=== PATIENT | male | born 1970 | race Caucasian/White ===

== ENCOUNTER 2017-02-23 06:38 | Inpatient (IN) ==
[2017-02-23] MEDS ORDERED: Acetaminophen IV 1,000 MG/100 ML INFUS..BTL IVPB ONE (07:12)
[2017-02-23] MEDS ORDERED: Scopolamine Patch 1.5 MG PATCH.TD72 TD ONE (07:12)
--- NOTE | 2017-02-23 07:15 | Anesthesia Evaluation PreOp ---
Date of Encounter: 02/23/17 Time of Encounter: 07:10 - Past History Planned Operation: robotic colon resection Cardiac History: Denies any Significant Hx, HTN (Possible untreated diastolic hypertension) Pulmonary History: Former smoker [employer] History: Denies Any Significant HX Other Medical History: Denies Any Significant HX Anesthesia History: No Prior Anesthetic Complications, Past Anesthesia Alcohol Use: occasionally Drug use: none Medications and Allergies Multivitamin [Multi-Day Vitamins] 1 each PO DAILY 09/10/15 [History] Testosterone [Axiron] 30 mg TD DAILY 09/10/15 [History] cephALEXin [Keflex] 1 cap PO QID #40 capsule 09/10/15 [Rx] traMADol [Ultram] 1 tab PO TID #20 tablet 09/10/15 [Rx] Allergies acetaminophen [From Vicodin] Adverse Reaction (Unverified 02/23/17 07:15) Nausea Not allergic to acetaminophen, allergic to hydrocodone component of vicodin hydrocodone [From Vicodin] Adverse Reaction (Verified 02/11/17 16:02) Nausea morphine Adverse Reaction (Verified 02/11/17 16:02) n&v - Meds/Allergy Pre-op Review Medications Reviewed: Yes Allergies Reviewed: Yes Beta Blockers on Current Med List: No Anesthesia Results - Labs Laboratory Tests 02/11/17 15:58 Hgb 15.5 Plt Count 223 Anesthesia Exam Selected Entries 02/23/17 06:53 Temperature 98.0 F Pulse Rate 75 Respiratory Rate 18 Blood Pressure 119/90 O2 Sat by Pulse Oximetry 98 Weight: 122kg NPO (# of Hours): over 8 hours - HEENT Pupil (Motor): Pupils equal Mallampati: II Teeth: Normal Oral Opening: Greater than 3 (Had surgery in August, easy airway, easy intubation) - Cardiac Rhythm: Regular Murmur: None - Pulmonary Breath Sounds: bilateral Clear Respiratory Effort: Symmetrical Anesthesia Assess/Plan ASA Score: 2 Modified [place] Scale for Level of Consciousness: Cooperative, oriented, and tranquil Anesthetic Plan: General Monitoring Plan: Standard Monitors Recovery Plan: PACU
[2017-02-23] MEDS ORDERED: *HR* Midazolam HCl 2 MG/2 ML VIAL ONE (07:18)
[2017-02-23] MEDS ORDERED: *HR* Rocuronium Bromide 50 MG/5 ML VIAL ONE (07:18)
[2017-02-23] MEDS ORDERED: *HR* Propofol 200 MG/20 ML VIAL IVP ONE (07:18)
[2017-02-23] MEDS ORDERED: Ketorolac 30 MG/ML VIAL ONE (07:18)
[2017-02-23] MEDS ORDERED: *HR* FentaNYL (PF) 100 MCG/2 ML VIAL ONE ×2 (07:18→09:24)
[2017-02-23] MEDS ORDERED: Ondansetron 4 MG/2 ML VIAL ONE (07:18)
[2017-02-23] MEDS ORDERED: Lidocaine -MPF 2% 2 ML VIAL ONE (07:18)
[2017-02-23] MEDS ORDERED: cefOXitin 2,000 MG in D5% in Water (Mini-Bag+) 100 ML IVPB ONE (07:26)
[2017-02-23] MEDS ORDERED: Lidocaine -MPF 1% 2 ML VIAL ID ONE ×2 (07:26→12:37)
[2017-02-23] MEDS ORDERED: Ringers Solution, Lactated 1,000 ML IVC SCH ×2 (07:30→12:37)
--- NOTE | 2017-02-23 07:46 | History & Physical Report ---
Date of Encounter: 02/23/17 Time of Encounter: 07:44 24 Hour HP Update - Instructions Instructions: If the History and Physical is less than 30 days old and was completed prior to A.M. admission and or procedure and has NOT been updated on calendar day of procedure please complete this update prior to performing procedure. - Update Patient reports changes in Medical Condition: No Changes in examination, assessment, or condition: No Changes in Medication: No Preop tests/diagnostics Reviewed: Yes Surgery Remains Indicated: Yes Consent for Planned Operative Procedure(s) Verified: Yes - Pre-Operative Checklist Preoperative Checklist Indicated: Yes Prophylactic Antibiotic Ordered: Yes Home Medications Include Beta Damaris: No
[2017-02-23] MEDS ORDERED: Dexamethasone 4 MG/ML VIAL ONE (09:30)
[2017-02-23] MEDS ORDERED: *HR* HYDROmorphone (PF) 1 MG/ML SYRINGE IVP PRN ×2 (10:45→11:44)
[2017-02-23] MEDS ORDERED: *HR* Labetalol 20 MG/4 ML SYRINGE IVP PRN (10:45)
[2017-02-23] MEDS ORDERED: *HR* Promethazine 25 MG/ML VIAL IVP PRN (10:45)
[2017-02-23] MEDS ORDERED: Albuterol 2.5 MG/3 ML NEBULIZER IH PRN (10:45)
[2017-02-23] MEDS ORDERED: *HR* HYDROmorphone 2 MG/ML SYRINGE ONE (10:49)
[2017-02-23] MEDS ORDERED: Neostigmine Methylsulfate 3 MG/3 ML SYRINGE ONE (10:49)
--- NOTE | 2017-02-23 11:21 | Operative Note ---
Date of procedure: 02/23/17 Pre-op diagnosis: Sigmoid Diverticulitis Procedure: Robotic Sigmoid resection with 29 mm stapler Anesthesia: MELISSA Surgeon: Nikhil Almazan Estimated blood loss (cc): 15 Condition: stable Disposition: floor Procedure in Detail: After informed consent, patient taken operating room placed supine position. After adequate sedation anesthesia patient was placed in a lithotomy position. After proper timeout a 12 mm cannula site was placed right superior to the umbilicus. Pneumoperitoneum was greater. A 13 mm cannula was placed in right lower quadrant. 5 mm camera was placed in the right upper quadrant. An 8 mm cannula was placed in subxiphoid region followed by another 8 mm in the left lower quadrant. Patient was placed in a headdown position. The robot was docked over the patient's left hip. Small bowel swept out of the pelvis. Rectosigmoid colon was then grasped and retracted cephalad. The peritoneum was then scored level of the sacral promontory. The left ureter was identified and kept on harm's way. The inferior mesenteric artery was then taken with a vessel sealer. The lateral rectosigmoid stalks were taken down the vessel sealer. The dissection was carried out down to approximate 4 cm above the pelvic floor. Rectosigmoid colon was dissected free from the retro-pubic tubercle region. Once it was freed a 45 mm robotic Endo staplers fired across the rectum. Once it was retracted and area was demarcated on the sigmoid colon for transection. Indocyanine green was infused and we had excellent perfusion. A counterincision was made in the suprapubic region. Dissection carried down the anterior rectus sheath. The rectus muscles were then divided in the midline with Cristy clamp. Once they were split the rectosigmoid colon was delivered. Lilian bowel clamps are used to place across the colon proximal and distal and transected. Allis clamps are placed on the bowel and then a pursestring suture device placed on the colon. 3-0 Prolene suture was passed. A pursestring sutures and created and a 29 mm EEA anvil was placed. Suture was tied and secured. Colon was then placed back in the pelvis. The stapler was passed through the anal canal and to the rectal stump and then the spear was placed through the staple line. The anvil was then connected secured and fired. There were 2 excellent donuts. A leak test revealed no leak. At that point the procedure was terminated. All incisions are closed with 0 Vicryl suture and 4-0 Vicryl suture. Marcaine was inserted in the Pfannenstiel incision. She tolerated the procedure well.
[2017-02-23] MEDS ORDERED: Naloxone 0.4 MG/ML INJ IVP PRN ×2 (11:40→12:37)
[2017-02-23] MEDS ORDERED: *HR* Morphine 2 MG/ML SYRINGE IVP PRN (11:40)
[2017-02-23] MEDS ORDERED: Ondansetron 4 MG/2 ML VIAL IVP PRN ×3 (11:40→13:07)
[2017-02-23] MEDS ORDERED: D5% in 0.45% NACL 1,000 ML IVC SCH (11:45)
--- NOTE | 2017-02-23 12:06 | Anesthesia Evaluation Post Op ---
Date of Encounter: 02/23/17 Time of Encounter: 12:00 - Vital Signs Vital Signs: Vital Signs/O2 Sat/Glucose, Most Current Temp Pulse Resp BP Pulse Ox 02/23/17 11:55 65 16 120/92 100 02/23/17 11:45 59 16 122/90 89 02/23/17 11:35 97.1 F L 60 14 128/88 93 02/23/17 11:25 61 16 120/98 95 02/23/17 11:15 65 14 138/107 98 02/23/17 11:05 98.3 F 79 14 141/104 96 - Lungs Lungs: Clear Ascult./Percussion - Airway Airway: Non-obstructed - Cardiovascular Regular Rate - Mental Status Mental Status: Alert & Oriented, Answers Appropriately - Pain Pain Scale: 0 - Nausea Vomiting Nausea Vomiting: Not Present - Hydration Hydration: Ice chips - Discharge PostOp Status: Transfer Patient to floor
[2017-02-23] MEDS ORDERED: Acetaminophen 325 MG TABLET PO PRN (13:06)
[2017-02-23] MEDS: *HR* HYDROmorphone (PF) 1 MG/ML SYRINGE IVP PRN ×3 (13:28→18:50)
[2017-02-23] MEDS: D5% in 0.45% NACL 1,000 ML IVC SCH (13:31)
[2017-02-23] MEDS: *HR* Heparin 5,000 UNIT/ML VIAL SQ SCH (17:38)
[2017-02-23] MEDS ORDERED: *HR* Heparin 5,000 UNIT/ML VIAL SQ SCH (18:00)
[2017-02-23] MEDS: *HR* OxyCODONE/APAP 5/325 TABLET PO PRN (21:33)
[2017-02-24] MEDS: *HR* HYDROmorphone (PF) 1 MG/ML SYRINGE IVP PRN (00:44)
[2017-02-24] MEDS: *HR* Heparin 5,000 UNIT/ML VIAL SQ SCH (05:46)
[2017-02-24] MEDS: D5% in 0.45% NACL 1,000 ML IVC SCH (05:47)
[2017-02-24 07:01] LABS: Basophils % 0.1 %; Eosinophils % 0.1 %; Hematocrit 42.8 % (37.5-50.1); Hemoglobin 14.5 g/dL (12.9-16.9); Immature Granulocytes % 0.7 % (0-4); Lymphocytes # 1.2 K/mcL (0.6-4.6); Lymphocytes % 7.4 %; Mean Corpuscular HGB Conc 33.9 g/dL (31.6-35.5); Mean Corpuscular Volume 88.4 fL (83.0-100.0); Mean Platelet Volume 11.3 fL (9.4-12.4); Monocytes # 1.5 K/mcL (0.0-1.3); Monocytes % 8.8 %; Neutrophils # 13.8 K/mcL (1.6-8.9); Platelet Count 202 K/mcL (140-400); Red Blood Count 4.84 M/mcL (4.19-5.50); Red Cell Distribution Width 14.1 % (11.5-14.5); Segmented Neutrophils % 82.9 %
[2017-02-24] MEDS: *HR* OxyCODONE/APAP 5/325 TABLET PO PRN ×3 (07:56→16:34)
--- NOTE | 2017-02-24 09:08 | General Surgery Progress Note ---
Date of Encounter: 02/24/17 Time of Encounter: 09:05 - Assessment and Plan (1) Status post laparoscopic-assisted sigmoidectomy Current Visit: Yes Status: Acute POD # 1 s/p Laproscopic Sigmoid resection Afebrile Clear liquid diet Pain control - Tylenol - mild - Percocet - Moderate - Dilaudid - Severe H&H stable IVF BS present on exam today. No Flatus or BM. Will monitor for bowel function. Encouraged ICS Ambulate with assistance as tolerated Continue supportive care and management Patient understands and agrees to plan (2) Leukocytosis Current Visit: Yes Status: Acute WBC today 16.7. No recent CBC. Likely d/t reaction from surgery and receiving a dose of Decadron yesterday. Repeat labs in morning. Qualifiers: Qualified Code(s): D72.829 - Elevated white blood cell count, unspecified Subjective Patient reports: feels better, still having pain (incisional), tolerating liquids well, no flatus (feels bowels moving), no bowel movement, afebrile Objective Vital Signs - Last 8 Hours Temp Pulse Resp BP Pulse Ox 02/24/17 06:59 97.9 F 61 16 117/73 99 Intake and Output 02/23/17 02/24/17 02/24/17 23:59 07:59 15:59 Intake Total 1116 / 1116 240 / 240 Output Total 2275 / 2275 1625 / 1625 675 / 675 Balance -2275 / -2275 -509 / -509 -435 / -435 Intake: IV Fluids 1116 / 1116 D5% And 0.45% Nacl 1000 1116 / 1116 Ml Bag 1,000 ML @ 75 mls/ hr IVC .[id number] [facility] Rx#: [id number] Oral 240 / 240 Output: Urine 2275 / 2275 1625 / 1625 675 / 675 - General physical appearance no distress, obese - Eyes normal ocular movement - ENT normal mucosa - Neck Neck exam: trachea midline - Respiratory normal expansion, normal respiratory effort, clear to auscultation - Cardiovascular Cardiovascular exam: Present: RRR, no murmurs/rubs/gallops - Abdomen Abdomen: Present: bowel sounds present, soft, tender (incisional) - Incision Incision: Present: clean and dry (No evidence of erythema, drainage or shadowing ), intact - Neurologic CN 2-12 grossly intact - Psychiatric oriented to time, oriented to person, oriented to place, speech is normal, memory intact - Labs 02/24/17 06:00 Short CBC 02/24/17 Range/Units 06:00 WBC 16.7 H (4.3-11.1) K/mcL Hgb 14.5 (12.9-16.9) g/dL Hct 42.8 (37.5-50.1) % Plt Count 202 (140-400) K/mcL Neutrophils # 13.8 H (1.6-8.9) K/mcL Vital Signs Temp Pulse Resp BP Pulse Ox 02/24/17 06:59 97.9 F 61 16 117/73 99 02/23/17 23:30 98.1 F 73 16 104/61 96 02/23/17 20:55 98.1 F 79 17 113/69 97 02/23/17 17:35 97.8 F 91 18 112/70 95 02/23/17 15:25 97.1 F L 86 18 102/65 95 02/23/17 14:25 97.9 F 88 16 93/62 94 02/23/17 13:25 97.4 F L 94 16 99/64 94 02/23/17 12:55 97.8 F 67 16 106/72 97 02/23/17 12:25 97.7 F 75 16 112/76 97 02/23/17 12:05 97.2 F L 68 16 120/88 99 02/23/17 11:55 65 16 120/92 100 02/23/17 11:45 59 16 122/90 89 02/23/17 11:35 97.1 F L 60 14 128/88 93 02/23/17 11:25 61 16 120/98 95 02/23/17 11:15 65 14 138/107 98 02/23/17 11:05 98.3 F 79 14 141/104 96 Intake and Output 02/23/17 02/24/17 02/24/17 23:59 07:59 15:59 Intake Total 1116 / 1116 240 / 240 Output Total 2274 / 2274 1625 / 1625 675 / 675 Balance -2275 / -2275 -509 / -509 -435 / -435 Intake: IV Fluids 1116 / 1116 D5% And 0.45% Nacl 1000 1116 / 1116 Ml Bag 1,000 ML @ 75 mls/ hr IVC .[id number] [facility] Rx#: [id number] Oral 240 / 240 Output: Urine 2275 / 2275 1625 / 1625 675 / 675 - VTE Documentation of Mechanical Device: Intermittent pneumatic compression device Consult Discharge Plan - Plan Referrals: Candi Mireles CNP [Primary Care Provider] - Kaelyn Ferrara CNP [Advanced Practice Nurse] - 03/07/17 9:00 am
[2017-02-24 09:19] LABS: BUN/Creatinine Ratio 9 (6-26); Blood Urea Nitrogen 8 mg/dL (8-26); Calcium 9.2 mg/dL (8.6-10.8); Carbon Dioxide 25 mEq/L (19-29); Chloride 102 mEq/L (98-109); Glucose 122 mg/dL (70-99); Osmolality,Calculated 280 (280-300); Potassium 4.1 mEq/L (3.5-4.5); Sodium 135 mEq/L (136-145); eGFR For African Americans > 60 (> 60); eGFR For Non-African Americans > 60 (> 60)
--- NOTE | 2017-02-24 15:21 | Discharge Summary ---
Date of Encounter: 02/24/17 Time of Encounter: 15:00 - Discharge Diagnosis (1) Status post laparoscopic-assisted sigmoidectomy Priority: Primary Status: Acute - Discharge Medications Prescriptions: OxyCODONE/APAP 5/325 [Percocet 5/325 MG] 1 each PO Q4HR PRN #30 tab PRN Reason: Moderate Pain Docusate Sodium [Colace] 100 mg PO BID PRN #30 capsule PRN Reason: Constipation Ibuprofen 800 mg PO Q8H PRN #50 tablet PRN Reason: Mild Pain Home Medications: Fluticasone Propionate Nasal [Flonase] 1 spr NS BID 02/23/17 [History] Multivit-Minerals/FA/Lycopene [Eq One Daily Men's Tablet] 1 tab PO DAILY [History] Docusate Sodium [Colace] 100 mg PO BID PRN #30 capsule 02/24/17 [Rx] Ibuprofen 800 mg PO Q8H PRN #50 tablet 02/24/17 [Rx] OxyCODONE/APAP 5/325 [Percocet 5/325 MG] 1 each PO Q4HR PRN #30 tab 02/24/17 [Rx ] Allergies/Adverse Reactions: Allergies hydrocodone [From Vicodin] Adverse Reaction (Verified 02/11/17 16:02) Nausea morphine Adverse Reaction (Verified 02/11/17 16:02) n&v General Surgery Exam Initial Vital Signs Temp Pulse Resp BP Pulse Ox 98.0 F 75 18 119/90 98 02/23/17 06:53 02/23/17 06:53 02/23/17 06:53 02/23/17 06:53 02/23/17 06:53 - General physical appearance well developed, well nourished, no distress - Eyes normal ocular movement - ENT normal mucosa, atraumatic, normocephalic - Neck trachea midline - Respiratory normal respiratory effort, clear to auscultation - Cardiovascular Cardiovascular exam: Present: RRR - Abdomen Abdomen general surgery: Present: bowel sounds present, soft, tender (Expected postoperative tenderness) - Incision Incision: Present: clean and dry, intact - Integumentary Integumentary general surgery: Present: warm and dry - Neurologic Present: CN 2-12 grossly intact - Psychiatric Psychiatric general surgery: Present: appropriate, oriented to person, oriented to place, oriented to time, speech is normal, memory intact Date of admission: 02/23/17 12:31 Primary care physician: Candi Mireles, Discharging clinician: Nikhil Almazan (Lyndsey Ferrara) Anticipated date of discharge: 02/24/17 - Patient Status Disposition: Home, Self-Care Condition: Good Functional capacity at discharge: independent ambulation Overall status at discharge: patient is progressing back to baseline - Discharge Instructions Follow Up With: Candi Mireles CNP [Primary Care Provider] - Kaelyn Ferrara CNP [Advanced Practice Nurse] - 03/07/17 9:00 am Additional Instructions: #1 may shower, no tub bath for 2 weeks #2 wash incisions with soap and water and pat dry daily #3 no lifting, pushing, pulling more than 15 pounds for the next 4 weeks #4 no driving until off narcotics for 24 hours and able to safely react in the car #5 may climb stairs - Diet and Activity Activity: other (See additional instructions above) Diet: other (Advance to soft diet as tolerated; Avoid steak, chicken, pork and roughage for 2 weeks) - Hospital Course Hospital course: Mr. Gates is a 46 year old male who is status post robotic-assisted sigmoid colon resection due to diverticular disease. On postoperative day #1, she is tolerating liquid diet without nausea or vomiting. His pain is well- controlled. His vital signs are stable and he is afebrile. He is voiding and ambulating without difficulty. We will begin discharge planning to home and plan for outpatient follow-up in the next 10-14 days. - Time Spent with Patient Total time spent providing and/or coordinating discharge services: Less than 30 minutes Labs on day of discharge: Labs from last 24 hours 02/24/17 02/24/17 02/24/17 07:56 07:30 06:00 WBC 16.7 H RBC 4.84 Hgb 14.5 Hct 42.8 MCV 88.4 MCH 30.0 MCHC 33.9 RDW 14.1 Plt Count 202 MPV 11.3 Immature Gran % 0.7 Seg Neutrophils % 82.9 Lymphocytes % 7.4 Monocytes % 8.8 Eosinophils % 0.1 Basophils % 0.1 Neutrophils # 13.8 H Lymphocytes # 1.2 Monocytes # 1.5 H Eosinophils # 0.0 Basophils # 0.0 Sodium 135 L Potassium 4.1 Chloride 102 Carbon Dioxide 25 BUN 8 Creatinine 0.89 Est GFR ( Amer) > 60 Est GFR (Non-Af Amer) > 60 BUN/Creatinine Ratio 9 Glucose 122 H Calculated Osmolality 280 Calcium 9.2 Specimen Rejected Hemolyzed - Attending Attestation I examined this patient and my medical decision-making was reviewed with the ANIME ARTIST/PA/Advanced Practice Nurse/Resident Physician. I agree with the documented findings, disposition and treatment plan as described except to the extent set forth below.
[2017-02-24 15:29] VITALS: BP 117/76
== END 2017-02-24 17:50 | disposition home or self-care (01) | DRG 331 ==
LOC: SAMDAY 06:38 → 3ANU 12:31
PROVIDERS: ADMIT Surgery; ATTEND Surgery

== ENCOUNTER 2019-02-08 09:29 | Observation (INO) ==
--- NOTE | 2019-02-08 09:33 | Emergency Department Note ---
Disposition Clinical Impression: Unstable angina Hypertension Qualifiers: Hypertension type: unspecified Qualified Code(s): I10 - Essential (primary) hypertension Chest pain Qualifiers: Chest pain type: unspecified Qualified Code(s): R07.9 - Chest pain, unspecified Disposition: Admitted As Inpatient Condition: Good Referrals: NONE,PCP [Primary Care Provider] - Time of Disposition: 13:48 General Adult HPI - General Stated complaint: Chest Pain Time Seen by Provider: 02/08/19 09:31 Nursing Notes Reviewed: Yes Vital Signs Reviewed: Yes - History of Present Illness HPI Narrative: 48-year-old male presents emergency department with concern for chest pain. Patient states that he has been having sharp pain over the last 4 days that come and go. He said it happened very frequently. Reports no nausea or vomiting with them, but does have some diaphoresis. Person is also some tingling in the back arm that radiates from the chest pain. Patient states that today he was carrying garbage and reported a presyncopal episode where everything felt like it went dark. Patient states that he did not pass out lose consciousness. No history of coronary artery disease, father had cardiac bypass surgery, h ypertension hyperlipidemia, nonsmoker, nondiabetic. Patient also reporting some abdominal pain as well as back pain different times. Not currently having it right now. History of sigmoidectomy. - Related Data Home Medications Medication Instructions Recorded Confirmed No Known Home Drugs 02/08/19 02/08/19 Allergies Allergy/AdvReac Type Severity Reaction Status Date / Time hydrocodone [From Vicodin] AdvReac Nausea Verified 02/11/17 16:02 morphine AdvReac n&v Verified 02/11/17 16:02 All systems ED: reviewed and negative except as stated. Review of Systems: As Per HPI Constitutional: Denies: fever Cardiovascular: Reports: chest pain Respiratory: Denies: dyspnea Gastrointestinal: Reports: abdominal pain. Denies: nausea, vomiting, diarrhea, constipation, hematochezia Genitourinary: Denies: dysuria Musculoskeletal: Reports: back pain Past Medical History - Past Medical History Attestation: Yes The following information was validated with the patient. Medical history: Reports: hyperlipidemia, hypertension Surgical history: Reports: colectomy, orthopedic, other, other Psychiatric history: Reports: no psych history - Social History Smoking Status: Never smoker Smokeless Tobacco Status: No Alcohol use: Reports: none Drug use: Reports: none Physical Exam - General Limitations: no limitations General appearance: alert, in no apparent distress - Head Head exam: normocephalic - Eye Eye exam: Present: EOMI - ENT ENT exam: mucous membranes moist - Neck Neck exam: Present: trachea midline - Chest Chest inspection: Present: symmetric chest wall rise - Respiratory Respiratory exam: Present: normal lung sounds bilaterally. Absent: respiratory distress, accessory muscle use - Cardiovascular Cardiovascular exam: Present: regular rate, normal rhythm, normal heart sounds - Abdominal Exam Abdominal exam: Present: soft, Non-Tender. Absent: distention, guarding, rebound, rigidity - Extremities Exam Extremities exam: Present: normal capillary refill. Absent: calf tenderness - Neurological Exam Neurological exam: Present: alert, oriented X3 - Psychiatric Psychiatric exam: Present: normal affect, normal mood - Skin Skin exam: Present: warm, dry, intact, normal color. Absent: rash Course Vital Signs Temperature 98.3 F 02/08/19 09:35 Pulse Rate 87 02/08/19 09:35 Respiratory Rate 18 02/08/19 09:35 Blood Pressure 172/122 02/08/19 09:35 O2 Sat by Pulse Oximetry 99 02/08/19 09:35 Temperature 98.3 F 02/08/19 09:35 Pulse Rate 72 02/08/19 13:23 Respiratory Rate 18 02/08/19 13:23 Blood Pressure 129/90 02/08/19 13:23 O2 Sat by Pulse Oximetry 96 02/08/19 13:23 Oxygen Delivery Oxygen Delivery Room Air Medical Decision Making - [facility] Narrative Medical decision making narrative: 48-year-old male presents emergency Department with concern for frequent episodes of chest pain over the last 4 days. EKG does not reveal any ischemic changes. Troponin negative. Performed a CTA and dissection study and but that did not reveal any evidence of any acute abnormality. Patient given aspirin. His chest pressure responded to nitroglycerin. Heart score 4. Concern about unstable angina as patient has had frequent episodes over the last few days. Patient admitted to Dr. Jenkins. Chest X-Ray 02/08/19 09:32 IMPRESSION: No acute process. D/ / Saranya Carter MD / Saranya Carter MD Interpreting Provider: Saranya Carter MD Dissection 02/08/19 09:42 IMPRESSION: 1. No evidence of thoracic aortic dissection, aneurysm, or intramural hematoma. The examination is not adequate to assess for thromboembolic disease due to suboptimal opacification of the pulmonary artery. There are questionable hypodensities in the segmental branches of the right lower lobe which may be due to mixing artifact; however, if clinical concern persists for pulmonary emboli, consider dedicated PE study, assuming normal renal function. 2. Coronary artery disease. 3. Sigmoid diverticulosis. No evidence of diverticulitis. D/ / 02/08/2019 11:25:55 Neville Em MD / [facility] Interpreting Provider: Neville Em MD Chest CTA 02/08/19 11:26 IMPRESSION: No evidence of pulmonary embolism or acute pulmonary abnormality. D/ / 02/08/2019 12:10:05 Yvonne Mccormack MD / [facility] Interpreting Provider: Yvonne Mccormack MD - Lab Data Result diagrams: 02/08/19 09:46 02/08/19 09:46 Lab Results 02/08/19 02/08/19 Range/Units 09:46 09:46 WBC 7.2 (4.3-11.1) K/mcL RBC 6.10 H (4.19-5.50) M/mcL Hgb 17.8 H (12.9-16.9) g/dL Hct 53.4 H (37.5-50.1) % MCV 87.5 (83.0-100.0) fL MCH 29.2 (28.0-33.3) pg MCHC 33.3 (31.6-35.5) g/dL RDW 14.4 (11.5-14.5) % Plt Count 217 (140-400) K/mcL MPV 10.6 (9.4-12.4) fL Immature Gran % 0.6 (0-4) % Seg Neutrophils % 65.7 % Lymphocytes % 22.1 % Monocytes % 8.4 % Eosinophils % 2.5 % Basophils % 0.7 % Neutrophils # 4.7 (1.6-8.9) K/mcL Lymphocytes # 1.6 (0.6-4.6) K/mcL Monocytes # 0.6 (0.0-1.3) K/mcL Eosinophils # 0.2 (0.0-0.6) K/mcL Basophils # 0.1 (0.0-0.2) K/mcL Sodium 137 (136-145) mEq/L Potassium 4.6 (3.5-5.1) mEq/L Chloride 102 (98-107) mEq/L Carbon Dioxide 28 (23-29) mEq/L BUN 15 (6-20) mg/dL Creatinine 1.09 (0.70-1.30) mg/dL Est GFR ( Amer) > 60 (> 60) Est GFR (Non-Af Amer) > 60 (> 60) BUN/Creatinine Ratio 14 (6-26) Glucose 113 H (70-105) mg/dL Calculated Osmolality 286 (280-300) Calcium 9.5 (8.6-10.3) mg/dL Troponin I < 0.03 (< 0.04) ng/mL - Radiology Data Radiology results reviewed: Yes I reviewed the patient's radiology results. - EKG Data EKG #1 EKG attestation: Yes I reviewed and interpreted this EKG. EKG results narrative: Plan: 40 Akil 70 bpm, ME of 154 months seconds, QRS duration 84 ms, QT 363 ms, normal axis. Sinus rhythm with no ischemic ST changes. No evidence of QT prolongation, hypertrophic cardiomyopathy, Brugada syndrome, ARVC, WPW. Heart Score - Score History: Moderately Suspicious EKG: Normal Age: 45-65 Risk Factors: Equal/Greater than 3 risk factor or history of atherosclerotic disease Troponin: Less than normal limit HEART Score Total: 4
[2019-02-08] MEDS ORDERED: Isovue-370 500 ML BOTTLE IVP ONE ×2 (09:42→11:26)
[2019-02-08] MEDS ORDERED: Nitroglycerin 0.4 MG TAB.SUBL SL ONE (09:51)
[2019-02-08] MEDS: Nitroglycerin 0.4 MG TAB.SUBL SL SCH ×2 (09:54→15:16)
[2019-02-08 09:57] LABS: Basophils # 0.1 K/mcL (0.0-0.2); Basophils % 0.7 %; Eosinophils # 0.2 K/mcL (0.0-0.6); Eosinophils % 2.5 %; Hematocrit 53.4 % (37.5-50.1); Hemoglobin 17.8 g/dL (12.9-16.9); Immature Granulocytes % 0.6 % (0-4); Lymphocytes # 1.6 K/mcL (0.6-4.6); Lymphocytes % 22.1 %; Mean Corpuscular HGB Conc 33.3 g/dL (31.6-35.5); Mean Corpuscular Hemoglobin 29.2 pg (28.0-33.3); Mean Corpuscular Volume 87.5 fL (83.0-100.0); Mean Platelet Volume 10.6 fL (9.4-12.4); Monocytes # 0.6 K/mcL (0.0-1.3); Monocytes % 8.4 %; Neutrophils # 4.7 K/mcL (1.6-8.9); Platelet Count 217 K/mcL (140-400); Red Cell Distribution Width 14.4 % (11.5-14.5); Segmented Neutrophils % 65.7 %; White Blood Count 7.2 K/mcL (4.3-11.1)
[2019-02-08 10:16] LABS: BUN/Creatinine Ratio 14 (6-26); Blood Urea Nitrogen 15 mg/dL (6-20); Calcium 9.5 mg/dL (8.6-10.3); Carbon Dioxide 28 mEq/L (23-29); Chloride 102 mEq/L (98-107); Glucose 113 mg/dL (70-105); Osmolality,Calculated 286 (280-300); Potassium 4.6 mEq/L (3.5-5.1); Sodium 137 mEq/L (136-145); Troponin I < 0.03 ng/mL (< 0.04); eGFR For African Americans > 60 (> 60); eGFR For Non-African Americans > 60 (> 60)
[2019-02-08] MEDS ORDERED: Aspirin 325 MG TABLET PO ONE (12:22)
--- NOTE | 2019-02-08 12:22 | Emergency Department Note ---
Disposition Clinical Impression: Hypertension Qualifiers: Hypertension type: unspecified Qualified Code(s): I10 - Essential (primary) hypertension Chest pain Qualifiers: Chest pain type: unspecified Qualified Code(s): R07.9 - Chest pain, unspecified Disposition: Admitted As Inpatient Condition: Good Referrals: NONE,PCP [Primary Care Provider] - Time of Disposition: 12:22 General Adult HPI - General Chief complaint: ED Chest Pain Stated complaint: Chest Pain Time Seen by Provider: 02/08/19 09:31 Source: patient Limitations: no limitations - History of Present Illness Pain Scale: 0 - Related Data Home Medications Medication Instructions Recorded Confirmed Multivit-Minerals/FA/Lycopene [Eq 1 tab PO DAILY 02/23/17 02/23/17 One Daily Men's Tablet] Previous Rx's Medication Instructions Recorded Ibuprofen 800 mg PO Q8H PRN #50 tablet 02/24/17 Ciprofloxacin [Cipro] 500 mg PO BID #20 tablet 03/07/17 Phenazopyridine HCl [Pyridium] 200 mg PO TIDAC #6 tab 03/07/17 Sulfamethoxazole/Trimeth DS 1 each PO BID #20 tablet 03/07/17 [Bactrim DS] Tamsulosin [Flomax] 0.4 mg PO DAILY #30 cap.er.24h 03/07/17 Omeprazole 20 mg PO QAM #30 tab. 08/31/18 Ondansetron ODT [Zofran ODT] 4 mg SL Q8HR #15 tab.rapquincy 08/31/18 Sucralfate [Carafate] 1 gm PO QIDAC #80 tablet 08/31/18 Allergies Allergy/AdvReac Type Severity Reaction Status Date / Time hydrocodone [From Vicodin] AdvReac Nausea Verified 02/11/17 16:02 morphine AdvReac n&v Verified 02/11/17 16:02 Constitutional: Denies: fever Cardiovascular: Reports: chest pain Respiratory: Denies: dyspnea Gastrointestinal: Reports: abdominal pain. Denies: nausea, vomiting, diarrhea, constipation, hematochezia Genitourinary: Denies: dysuria Musculoskeletal: Reports: back pain Past Medical History - Past Medical History Medical history: Reports: hyperlipidemia, hypertension Surgical history: Reports: colectomy, orthopedic, other, other Psychiatric history: Reports: no psych history - Social History Smoking Status: Never smoker Smokeless Tobacco Status: No Alcohol use: Reports: none Drug use: Reports: none Physical Exam - General Limitations: no limitations General appearance: alert, in no apparent distress Course Vital Signs Temperature 98.3 F 02/08/19 09:35 Pulse Rate 87 02/08/19 09:35 Respiratory Rate 18 02/08/19 09:35 Blood Pressure 172/122 02/08/19 09:35 O2 Sat by Pulse Oximetry 99 02/08/19 09:35 Temperature 98.3 F 02/08/19 09:35 Pulse Rate 65 02/08/19 12:14 Respiratory Rate 18 02/08/19 12:14 Blood Pressure 150/92 02/08/19 12:14 O2 Sat by Pulse Oximetry 94 02/08/19 12:14 Oxygen Delivery Oxygen Delivery Room Air Medical Decision Making - Lab Data Result diagrams: 02/08/19 09:46 02/08/19 09:46 Lab Results 02/08/19 02/08/19 Range/Units 09:46 09:46 WBC 7.2 (4.3-11.1) K/mcL RBC 6.10 H (4.19-5.50) M/mcL Hgb 17.8 H (12.9-16.9) g/dL Hct 53.4 H (37.5-50.1) % MCV 87.5 (83.0-100.0) fL MCH 29.2 (28.0-33.3) pg MCHC 33.3 (31.6-35.5) g/dL RDW 14.4 (11.5-14.5) % Plt Count 217 (140-400) K/mcL MPV 10.6 (9.4-12.4) fL Immature Gran % 0.6 (0-4) % Seg Neutrophils % 65.7 % Lymphocytes % 22.1 % Monocytes % 8.4 % Eosinophils % 2.5 % Basophils % 0.7 % Neutrophils # 4.7 (1.6-8.9) K/mcL Lymphocytes # 1.6 (0.6-4.6) K/mcL Monocytes # 0.6 (0.0-1.3) K/mcL Eosinophils # 0.2 (0.0-0.6) K/mcL Basophils # 0.1 (0.0-0.2) K/mcL Sodium 137 (136-145) mEq/L Potassium 4.6 (3.5-5.1) mEq/L Chloride 102 (98-107) mEq/L Carbon Dioxide 28 (23-29) mEq/L BUN 15 (6-20) mg/dL Creatinine 1.09 (0.70-1.30) mg/dL Est GFR ( Amer) > 60 (> 60) Est GFR (Non-Af Amer) > 60 (> 60) BUN/Creatinine Ratio 14 (6-26) Glucose 113 H (70-105) mg/dL Calculated Osmolality 286 (280-300) Calcium 9.5 (8.6-10.3) mg/dL Troponin I < 0.03 (< 0.04) ng/mL Attestation Statement - Attestation Attestation: I reviewed the residents documentation and agree with the residents assessment and plan of care. I have personally had face to face time with the patient. (Brief History, Brief Exam, and MDM) I personally supervised and was present for the mascorro/critical portions of the following procedures completed by the resident: EKG 48 year old male presents to the ED with copmlaints of exertional chest pain and has a moderate heart score with improvement on nitro. Neg troponin, non ischemic EKG. CTA for PE/dissection ruled out. Admit to medicine
[2019-02-08] MEDS ORDERED: Naloxone 0.4 MG/ML INJ IVP PRN (15:09)
--- NOTE | 2019-02-08 15:13 | Internal Med History&Physical ---
<James Chaidez - Last Filed: 02/08/19 15:16> Date of Encounter: 02/08/19 Internal Medicine - H&P: HPI History of present illness: Mr. Gates is a 48 year old male Internal Medicine - H&P: Meds Aspirin [Lo-Dose Aspirin EC] 81 mg PO DAILY 02/08/19 [History] Garlic 1 mg PO DAILY 02/08/19 [History] Multivitamin [One Daily] 1 each PO DAILY 02/08/19 [History] Saw Donnelly 80 mg PO DAILY 02/08/19 [History] Testosterone Cypionate [Depo-Testosterone] 50 mg IM Q10D 02/08/19 [History] Allergy/AdvReac Type Severity Reaction Status Date / Time hydrocodone [From Vicodin] AdvReac Nausea Verified 02/11/17 16:02 morphine AdvReac n&v Verified 02/11/17 16:02 All Systems PM: A 10-system review of systems was performed and is negative for pertinent findings except as documented above in the HPI. - Constitutional Vitals: Temp Pulse Resp BP Pulse Ox 98.3 F 72 18 129/90 96 02/08/19 09:35 02/08/19 13:23 02/08/19 13:23 02/08/19 13:23 02/08/19 13:23 Internal Med - H&P Results - Labs CBC & Chem 7: 02/08/19 09:46 02/08/19 09:46 Labs: Short CBC 02/08/19 Range/Units 09:46 WBC 7.2 (4.3-11.1) K/mcL Hgb 17.8 H (12.9-16.9) g/dL Hct 53.4 H (37.5-50.1) % Plt Count 217 (140-400) K/mcL Neutrophils # 4.7 (1.6-8.9) K/mcL BMP 02/08/19 09:46 Sodium 137 Potassium 4.6 Chloride 102 Carbon Dioxide 28 BUN 15 Creatinine 1.09 Glucose 113 H Calcium 9.5 Cardiac Enzymes 02/08/19 Range/Units 09:46 Troponin I < 0.03 (< 0.04) ng/mL - Impressions ITS Impressions Chest X-Ray 02/08/19 09:32 IMPRESSION: No acute process. D/ / Saranya Carter MD / Saranya Carter MD Interpreting Provider: Saranya Carter MD Dissection 02/08/19 09:42 IMPRESSION: 1. No evidence of thoracic aortic dissection, aneurysm, or intramural hematoma. The examination is not adequate to assess for thromboembolic disease due to suboptimal opacification of the pulmonary artery. There are questionable hypodensities in the segmental branches of the right lower lobe which may be due to mixing artifact; however, if clinical concern persists for pulmonary emboli, consider dedicated PE study, assuming normal renal function. 2. Coronary artery disease. 3. Sigmoid diverticulosis. No evidence of diverticulitis. D/ / 02/08/2019 11:25:55 Neville Em MD / lonnie Interpreting Provider: Neville Em MD Chest CTA 02/08/19 11:26 IMPRESSION: No evidence of pulmonary embolism or acute pulmonary abnormality. D/ / 02/08/2019 12:10:05 Yvonne Mccormack MD / [email or web address] Interpreting Provider: Yvonne Mccormack MD - Time Spent With Patient Total time spent is greater than 50% in coordination of care (as documented) at patient's floor/unit and/or counseling patient: - Attending Attestation I examined this patient and my medical decision-making was reviewed with the Resident Physician. I agree with the documented findings, disposition and treatment plan as described except to the extent set forth below. Patient is a 48-year-old male with history of hypertension that is been pre viously treated with medication but improved with weight loss who presents with chest pain. Chest pain is left-sided and radiates to left arm. He describes it as sharp in nature and seems to be worse with activity but is not worse every time he is active. He states the pain also occurs at rest. He has never had anything like this before. Patient has no significant medical history other than hypertension which was initially treated with medication but has since been controlled with diet and exercise. Patient has family history of coronary artery disease requiring coronary bypass surgery in his age of 70s. On exam he is alert and oriented 3, no acute distress. Heart is regular rate and rhythm, no murmurs, rubs, gallops. Lungs are clear to auscultation bilaterally, no rales, wheezes. EKG reviewed and shows normal sinus rhythm with no ischemic changes. Laboratory evaluation is unremarkable other than some mild erythrocytosis. Initial troponin is negative. Assessment and plan: Chest pain: Patient does have risk factors including hypertension and history is moderately suspicious. EKG normal and initial troponin is normal. We will trend troponins, plan for exercise stress test with nuclear medicine in the morning. Hypertension: Blood pressure is elevated, patient states he has previously been on lisinopril but has otherwise controlled his blood pressure recently with diet and exercise. However he does state that he has gained some weight. Continue to monitor her blood pressure during hospitalization, likely restart lisinopril at discharge. <Romelia Romero - Last Filed: 02/08/19 20:32> Date of Encounter: 02/08/19 Time of Encounter: 15:11 Internal Medicine - H&P: HPI Chief complaint: Chest Pain Admitted From: Home Plans for Post Hospital Care: Home History of present illness: Mr. Gates is a 48 year old male with past medical history significant for hypertension currently managed with diet and exercise who presented to the ED today with chest pain. Patient works as a accounting office manager. States that while he was at work today, he experienced a near syncopal episode. States he "felt like he was given a pass out". Went to go sit down, and to go about 5 minutes to feel normal. He continued working, but still did not feel like himself. He then noted midsternal chest pain that radiated to the left arm. Describes the pain is sharp, with radiation to the elbow of the left arm. Denies any heavy, pressure-like feeling of the chest, and denies pain radiating to the neck, jaw. Denies associated shortness of breath, nausea, headache, blurry vision, numbness or tingling of the extremities. States that he has been having similar chest pain for the past 4-5 days. Notes that he does feel sharp pain for about 30-45 seconds before relief. Pain has been occurring on and off every 1-2 hours. Pain will occur even when patient is at rest if he is sitting, when he is cooking, and when he is working. Of note, patient's chest pain was relieved with nitroglycerin today. Patient states that he has a history of hypertension, and was on medication up until recently. With weight loss and change in diet, he was taken off medication. Notes stress test about 10-15 years ago. States he has a family history of coronary artery disease with his father. Notes father had to have a 5 vessel bypass. Patient also notes that he has been feeling fatigued, and does take testosterone injections every 10 days. In the emergency department, patient's initial vitals were within normal limits, aside from hypertension = 172/122. Lab work was done and was benign. Notable labs include hemoglobin/hematocrit = 17.8/53.4. Troponin was negative. EKG was sinus rhythm and did not show any acute ST changes. Chest x-ray showed no acute process. CT dissection study and showed no evidence of thoracic aortic dissection, aneurysm, maternal. Additionally showed evidence of coronary artery disease, and sigmoid diverticulosis without signs of diverticulitis. Chest CTA showed no evidence of pulmonary embolism or acute pulmonary abnormality. Patient was admitted for further workup of chest pain. Patient will have stress tests tomorrow morning. Past Med Surg Social Fam HX - Past Medical History Attestation: Yes The following information was validated with the patient. Source: patient, old records reviewed, obtained from family Medical history: hyperlipidemia, hypertension Psychiatric history: no psych history - Past Surgical History Surgical History: colectomy, orthopedic, other, other Additional surgical history: L-4/ L-5 surgery. sinus surgery. colon surgery - Social History Smoking Status: Never smoker Smokeless Tobacco Status: No Alcohol use: occasionally Drug use: none Occupational status: employed Current living situation: Home - Independent, Home Activity Level: Independent ambulation - Family History Father Hx Family Cardiac Disorders: Yes Hx Family Endocrine Disorder: Yes (DM) Mother Hx Family Cardiac Disorders: Yes (HTN) Hx Family Respiratory Disorders: Yes (Asthma) All Systems PM: A 10-system review of systems was performed and is negative for pertinent findings except as documented above in the HPI. - Constitutional Constitutional: fatigue, no lethargy, no malaise, no weakness - EENT Eyes: no blurry vision, no change in vision Ears: no decreased hearing Nose, mouth and throat: no facial pain, no neck pain - Cardiovascular Cardiovascular ROS IM: chest pain, diaphoresis, no dyspnea, no dyspnea on exertion, no irregular heart rhythm, no lightheadedness, no palpitations, no syncope - Respiratory Respiratory: no cough, no dyspnea, no hemoptysis, no dyspnea on exertion, no wheezing - Gastrointestinal Gastrointestinal: no abdominal pain, no bloating, no diarrhea, no nausea, no vomiting - Genitourinary Genitourinary ROS male: no dysuria - Musculoskeletal Musculoskeletal ROS IM: no back pain, no neck pain - Integumentary Integumentary IM: no rash - Neurological Neurological ROS: no confusion, no dizziness, no numbness, no paresthesias, no tingling, no weakness - Psychiatric Psychiatric: no anxiety, no confusion - Endocrine Endocrine IM: no fatigue - Constitutional Vitals: Temp Pulse Resp BP Pulse Ox 98.3 F 72 18 129/90 96 02/08/19 09:35 02/08/19 13:23 02/08/19 13:23 02/08/19 13:23 02/08/19 13:23 General appearance: Present: cooperative, A&O X 3, pleasant, no acute distress, obese, answers questions appropriately Exam: This is a very pleasant 48-year-old male who is resting comfortably at bedside. Accompanied by his . - Head Head exam: Present: atraumatic, normal inspection, normocephalic - Eye Eye exam: Present: EOMI, PERRL - ENT ENT exam: Present: mucous membranes moist, normal oropharynx - Neck Neck exam general surgery: Present: full ROM, supple - Respiratory Respiratory exam: Present: CTAB. Absent: respiratory distress, rhonchi, wheezes, tachypnea - Cardiovascular Cardiovascular exam: Present: RRR, +S1, +S2 - GI/Abdominal GI/Abdominal exam: Present: soft, no peritoneal signs - Extremities Exam Extremities exam: Present: full ROM, normal capillary refill, normal inspection, warm, radial pulses palpable and symmetrical - Neurological Exam Neurological exam: Present: alert, CN II-XII intact, no focal deficits, strengths equal and symetr throughout - Psychiatric Psychiatric exam: Present: normal affect, normal mood - Skin Skin exam: Absent: rash Internal Med - H&P Results - Labs CBC & Chem 7: 02/08/19 09:46 02/08/19 09:46 Labs: Short CBC 02/08/19 Range/Units 09:46 WBC 7.2 (4.3-11.1) K/mcL Hgb 17.8 H (12.9-16.9) g/dL Hct 53.4 H (37.5-50.1) % Plt Count 217 (140-400) K/mcL Neutrophils # 4.7 (1.6-8.9) K/mcL BMP 02/08/19 09:46 Sodium 137 Potassium 4.6 Chloride 102 Carbon Dioxide 28 BUN 15 Creatinine 1.09 Glucose 113 H Calcium 9.5 Cardiac Enzymes 02/08/19 Range/Units 09:46 Troponin I < 0.03 (< 0.04) ng/mL - EKG Data -: EKG Interpreted by Myself EKG shows normal: sinus rhythm, axis, intervals, QRS complexes, ST-T waves - EKG Data Prior EKG available for review: yes When compared to previous EKG: there is no significant change Interpretation IM: normal EKG EKG comments: HR = 78, AR = 154, QRS = 84, QTC = 414. Normal sinus rhythm. Normal axis. Normal intervals. No signs of any ischemic changes. No significant changes compared to previous EKG. 02/08/19 20:20 - Impressions ITS Impressions Chest X-Ray 02/08/19 09:32 IMPRESSION: No acute process. D/ / Saranya Carter MD / Saranya Carter MD Interpreting Provider: Saranya Carter MD Dissection 02/08/19 09:42 IMPRESSION: 1. No evidence of thoracic aortic dissection, aneurysm, or intramural hematoma. The examination is not adequate to assess for thromboembolic disease due to suboptimal opacification of the pulmonary artery. There are questionable hypodensities in the segmental branches of the right lower lobe which may be due to mixing artifact; however, if clinical concern persists for pulmonary emboli, consider dedicated PE study, assuming normal renal function. 2. Coronary artery disease. 3. Sigmoid diverticulosis. No evidence of diverticulitis. D/ / 02/08/2019 11:25:55 Neville Em MD / lonnie Interpreting Provider: Neville Em MD Chest CTA 02/08/19 11:26 IMPRESSION: No evidence of pulmonary embolism or acute pulmonary abnormality. D/ / 02/08/2019 12:10:05 Yvonne Mccormack MD / [email or web address] Interpreting Provider: Yvonne Mccormack MD - Assessment and Plan (1) Chest pain Current Visit: Yes Status: Acute Assessment and plan: Mr. Gates is a 48 year old male with past medical history significant for hypertension currently managed with diet and exercise who presented to the ED today with chest pain. - Associated midsternal chest pain that radiated to the left arm. Describes the pain is sharp, with radiation to the elbow of the left arm. - Similar chest pain for the past 4-5 days. Lasts 30-45 seconds before resolving. Occurs at rest and with exercise or exertion. - Did improve with nitroglycerin - History of hypertension, currently managed with weight loss and diet. - Family history of coronary artery disease - History of testosterone - Hypertension in the ED = 172/122 - EKG and troponin negative - No evidence of PE on CTA chest - No evidence of aortic dissection on dissection study. It show evidence of coronary artery disease - Status post nitroglycerin and aspirin in the ED PLAN: Patient presents with atypical chest pain. Has occurred over the past couple days. Associated sharp midsternal chest pain. History of hypertension. Otherwise no cardiac history. - Will be admitted for observation - Continue cardiac telemetry - Monitor vitals, monitor blood pressures - Plan for exercise nuclear stress test tomorrow - Continue trending troponins - Monitor for signs and symptoms of worsening chest pain Qualifiers: Chest pain type: unspecified Qualified Code(s): R07.9 - Chest pain, unspecified (2) Hypertension Current Visit: Yes Status: Chronic Assessment and plan: Hypertension noted in the ED today. BP = 172/122 - History of hypertension. Previously was on lisinopril. Currently managed with diet and exercise. PLAN: - Continue to monitor blood pressure - Hydralazine when necessary for systolic blood greater than 180 - We will likely start antihypertensive at time of discharge - Of note, patient has hypertension, snores at night, obesity, and daytime sleepiness. Currently taking testosterone injections for fatigue. May benefit from outpatient sleep study for evaluation of obstructive sleep apnea. We will recommend for sleep study at time of discharge. Qualifiers: Hypertension type: unspecified Qualified Code(s): I10 - Essential (primary) hypertension (3) DVT prophylaxis Current Visit: Yes Status: Acute Assessment and plan: PLAN: - Heparin SQ BID - Time Spent With Patient Total time spent is greater than 50% in coordination of care (as documented) at patient's floor/unit and/or counseling patient: less than 15 minutes
--- NOTE | 2019-02-08 16:33 | Electrocardiograph Report ---
[address] [address] Test Date: 2019-02-08 Pat Name: Florian Gates Department: EXAM10 Room: 3B11 Gender: M Manager Rn: : 1970 Requested By: Bernard Altman Order Number: [id number] Reading MD: Vega Romeo Measurements Intervals [place] Rate: 78 P: 35 AR: 154 QRS: 21 QRSD: 84 T: 55 QT: 363 QTc: 414 Interpretive Statements Sinus rhythm Electronically Signed On 02-08-2019 16:32:27 EDT by Vega Romeo
--- NOTE | 2019-02-08 16:39 | Internal Med History&Physical ---
Date of Encounter: 02/08/19 Time of Encounter: 16:36 Internal Medicine - H&P: HPI Admitted From: Home Plans for Post Hospital Care: Home History of present illness: Mr. Gates is a 48 year old male Past Med Surg Social Fam HX - Past Medical History Medical history: hyperlipidemia, hypertension Psychiatric history: no psych history - Past Surgical History Surgical History: colectomy, orthopedic, other, other Additional surgical history: L-4/ L-5 surgery. sinus surgery. colon surgery - Social History Smoking Status: Former smoker Smokeless Tobacco Status: Yes Alcohol use: occasionally Drug use: none - Family History Father Hx Family Cardiac Disorders: Yes (CABG) Hx Family Endocrine Disorder: Yes (DM) Hx Family Neurologic Disorders: Yes (CVA) Mother Hx Family Cardiac Disorders: (HLD) Hx Family Respiratory Disorders: Yes (Asthma) Internal Medicine - H&P: Meds No Known Home Drugs 02/08/19 [History] Allergy/AdvReac Type Severity Reaction Status Date / Time hydrocodone [From Vicodin] AdvReac Nausea Verified 02/11/17 16:02 morphine AdvReac n&v Verified 02/11/17 16:02 All Systems PM: A 10-system review of systems was performed and is negative for pertinent findings except as documented above in the HPI. - Constitutional Vitals: Temp Pulse Resp BP Pulse Ox 98.5 F 80 16 127/85 93 02/08/19 15:52 02/08/19 15:52 02/08/19 15:52 02/08/19 15:52 02/08/19 15:52 General appearance: Present: cooperative, A&O X 3, morbidly obese, pleasant, no acute distress, obese, answers questions appropriately. Absent: mild distress - Neck Neck exam general surgery: Present: lymphadenopathy, tenderness, nuchal rigidity Internal Med - H&P Results - Labs CBC & Chem 7: 02/08/19 09:46 02/08/19 09:46 Labs: Short CBC 02/08/19 Range/Units 09:46 WBC 7.2 (4.3-11.1) K/mcL Hgb 17.8 H (12.9-16.9) g/dL Hct 53.4 H (37.5-50.1) % Plt Count 217 (140-400) K/mcL Neutrophils # 4.7 (1.6-8.9) K/mcL BMP 02/08/19 09:46 Sodium 137 Potassium 4.6 Chloride 102 Carbon Dioxide 28 BUN 15 Creatinine 1.09 Glucose 113 H Calcium 9.5 Cardiac Enzymes 02/08/19 Range/Units 09:46 Troponin I < 0.03 (< 0.04) ng/mL - Impressions ITS Impressions Chest X-Ray 02/08/19 09:32 IMPRESSION: No acute process. D/ / Saranya Carter MD / Saranya Carter MD Interpreting Provider: Saranya Carter MD Dissection 02/08/19 09:42 IMPRESSION: 1. No evidence of thoracic aortic dissection, aneurysm, or intramural hematoma. The examination is not adequate to assess for thromboembolic disease due to suboptimal opacification of the pulmonary artery. There are questionable hypodensities in the segmental branches of the right lower lobe which may be due to mixing artifact; however, if clinical concern persists for pulmonary emboli, consider dedicated PE study, assuming normal renal function. 2. Coronary artery disease. 3. Sigmoid diverticulosis. No evidence of diverticulitis. D/ / 02/08/2019 11:25:55 Neville Em MD / [email or web address] Interpreting Provider: e[place]ville Em MD Chest CTA 02/08/19 11:26 IMPRESSION: No evidence of pulmonary embolism or acute pulmonary abnormality. D/ / 02/08/2019 12:10:05 Yvonne Mccormack MD / [facility] Interpreting Provider: Yvonne Mccormack MD - Assessment and Plan (1) Hypertension Current Visit: No Status: Chronic Qualifiers: Hypertension type: unspecified Qualified Code(s): I10 - Essential (primary) hypertension (2) Chest pain Current Visit: Yes Status: Acute Qualifiers: Chest pain type: chest pain on breathing Qualified Code(s): R07.1 - Chest pain on breathing; R07.81 - Pleurodynia - Time Spent With Patient Total time spent is greater than 50% in coordination of care (as documented) at patient's floor/unit and/or counseling patient:
[2019-02-09 04:59] LABS: Basophils # 0.1 K/mcL (0.0-0.2); Basophils % 0.7 %; Eosinophils # 0.2 K/mcL (0.0-0.6); Eosinophils % 2.5 %; Hemoglobin 17.1 g/dL (12.9-16.9); Immature Granulocytes % 0.8 % (0-4); Lymphocytes # 1.6 K/mcL (0.6-4.6); Lymphocytes % 21.6 %; Mean Corpuscular HGB Conc 33.5 g/dL (31.6-35.5); Mean Corpuscular Hemoglobin 29.7 pg (28.0-33.3); Mean Corpuscular Volume 88.5 fL (83.0-100.0); Monocytes # 0.7 K/mcL (0.0-1.3); Monocytes % 8.7 %; Neutrophils # 4.9 K/mcL (1.6-8.9); Platelet Count 200 K/mcL (140-400); Red Blood Count 5.76 M/mcL (4.19-5.50); Red Cell Distribution Width 14.6 % (11.5-14.5); Segmented Neutrophils % 65.7 %; White Blood Count 7.5 K/mcL (4.3-11.1)
[2019-02-09 05:08] LABS: INR 1.1; Prothrombin Time 12.3 Seconds (9.4-12.1)
[2019-02-09 05:20] LABS: BUN/Creatinine Ratio 13 (6-26); Blood Urea Nitrogen 14 mg/dL (6-20); Calcium 8.9 mg/dL (8.6-10.3); Carbon Dioxide 28 mEq/L (23-29); Chloride 103 mEq/L (98-107); Chol/HDL Ratio 7.1 (0-4.9); Cholesterol 235 mg/dL (< 200); Glucose 121 mg/dL (70-105); HDL Cholesterol 33 mg/dL (40-59); LDL Cholesterol,Calculated 165 mg/dL (0-99); Magnesium 2.1 mg/dL (1.6-2.6); Osmolality,Calculated 290 (280-300); Phosphorous 3.3 mg/dL (2.7-4.5); Potassium 4.2 mEq/L (3.5-5.1); Sodium 139 mEq/L (136-145); Triglycerides 187 mg/dL (< 150); eGFR For African Americans > 60 (> 60); eGFR For Non-African Americans > 60 (> 60)
[2019-02-09] MEDS ORDERED: *HR* Heparin 5,000 UNIT/ML VIAL SQ SCH (06:00)
[2019-02-09 06:58] VITALS: BP 126/89
[2019-02-09] MEDS ORDERED: Aspirin Enteric Coated 81 MG Tablet PO SCH (09:00)
--- NOTE | 2019-02-09 09:19 | Internal Med Progress Note ---
Hospitalist Progress Note - Encounter Date of Encounter: 02/09/19 Time of Encounter: 09:19 - Exam Vitals: Temp Pulse Resp BP Pulse Ox 97.8 F 73 16 126/89 96 02/09/19 06:57 02/09/19 06:57 02/09/19 06:57 02/09/19 06:57 02/09/19 06:57 - Assessment and Plan (1) Chest pain Current Visit: Yes Status: Acute (2) Hypertension Current Visit: Yes Status: Chronic (3) DVT prophylaxis Current Visit: Yes Status: Acute - Time Spent with Patient Total time spent is greater than 50% in coordination of care (as documented) at patient's floor/unit and/or counseling patient: Internal Medicine: Result - Labs CBC & Chem 7: 02/09/19 04:41 02/09/19 04:41 Labs: Short CBC 02/08/19 02/09/19 Range/Units 09:46 04:41 WBC 7.2 7.5 (4.3-11.1) K/mcL Hgb 17.8 H 17.1 H (12.9-16.9) g/dL Hct 53.4 H 51.0 H (37.5-50.1) % Plt Count 217 200 (140-400) K/mcL Neutrophils # 4.7 4.9 (1.6-8.9) K/mcL BMP 02/08/19 02/09/19 09:46 04:41 Sodium 137 139 Potassium 4.6 4.2 Chloride 102 103 Carbon Dioxide 28 28 BUN 15 14 Creatinine 1.09 1.06 Glucose 113 H 121 H Calcium 9.5 8.9 Cardiac Enzymes 02/08/19 02/08/19 02/08/19 Range/Units 09:46 16:13 22:19 Troponin I < 0.03 < 0.03 < 0.03 (< 0.04) ng/mL - ABG Interpretation ABG results: PT/INR, D-dimer PT 12.3 Seconds (9.4-12.1) H 02/09/19 04:41 - Impressions Impressions Chest X-Ray 02/08/19 09:32 IMPRESSION: No acute process. D/ / Saranya Carter MD / Saranya Carter MD Interpreting Provider: Saranya Carter MD Dissection 02/08/19 09:42 IMPRESSION: 1. No evidence of thoracic aortic dissection, aneurysm, or intramural hematoma. The examination is not adequate to assess for thromboembolic disease due to suboptimal opacification of the pulmonary artery. There are questionable hypodensities in the segmental branches of the right lower lobe which may be due to mixing artifact; however, if clinical concern persists for pulmonary emboli, consider dedicated PE study, assuming normal renal function. 2. Coronary artery disease. 3. Sigmoid diverticulosis. No evidence of diverticulitis. D/ / 02/08/2019 11:25:55 Neville Em MD / lonnie Interpreting Provider: Neville Em MD Chest CTA 02/08/19 11:26 IMPRESSION: No evidence of pulmonary embolism or acute pulmonary abnormality. D/ / 02/08/2019 12:10:05 Yvonne Mccormack MD / estefani Interpreting Provider: Yvonne Mccormack MD Consult Discharge Plan - Plan (1) Chest pain Qualifiers: Chest pain type: unspecified Qualified Code(s): R07.9 - Chest pain, unspecified (2) Hypertension Qualifiers: Hypertension type: unspecified Qualified Code(s): I10 - Essential (primary) hypertension
[2019-02-09 10:30] LABS: Estimated Average Glucose 134 mg/dl
--- NOTE | 2019-02-09 11:22 | Discharge Summary ---
<Romelia Romero - Last Filed: 02/09/19 11:43> - NOTES TO OUTPATIENT PROVIDER Notes to Outpatient Provider: - Pt will be started on Lisinopril 10mg QD. - He will additionally be started on Atorvastatin 10mg QD. - Presented with chest pain; Had negative stress test. - He would benefit from outpatient sleep study to evaluate for objective sleep apnea. Orders not resulted at time of discharge: Pending orders 02/08/19 19:52 NM franc perf SPECT multi [NM] Routine Date of Encounter: 02/09/19 Time of Encounter: 11:19 - Discharge Diagnosis (1) Chest pain Priority: Primary Status: Acute Qualifiers: Chest pain type: unspecified Qualified Code(s): R07.9 - Chest pain, unspecified (2) Hypertension Priority: Secondary Status: Chronic Qualifiers: Hypertension type: unspecified Qualified Code(s): I10 - Essential (primary) hypertension (3) DVT prophylaxis Priority: Secondary Status: Acute Hospital course: Mr. Gates is a 48 year old male with past medical history significant for hypertension managed by diet and exercise who presented to the ED today complain ing of chest pain. States that he experienced a near syncopal episode while at work, and then described midsternal chest pain that radiated to his left arm to the elbow. He denied any heavy, pressure-like pain, and denied any radiation to the neck, jaw. She denied any headache, blurry vision, nausea, shortness of breath. He did note that he been having similar episodes of chest pain that lasted 30-45 seconds for the past 3-4 days. Pain would occur at rest, during exercise, will do routine neck to these around his home. With persistent chest pain while at work, patient decided he needed to be evaluated in the ED. Patient was seen in the emergency department, vitals were within normal limits. Patient was hypertensive = 172/122. Lab work was benign, though hemoglobin and hematocrit were elevated = 17.8/53.4. Otherwise, troponin was negative. EKG showed sinus rhythm and no signs of acute ischemic changes. Chest x-ray was negative. CT dissection study was negative. An CTA chest showed no acute pulmonary embolism. Patient was admitted for further observation, and stress test was planned. Results of stress test (02/09/19) showed no ischemia or infarct on perfusion study. LVEF = 68%. No ischemia was noted on exercise ECG. Patient had good exercise capacity. Given patient's negative stress test, negative troponins, negative EKG, patient is stable for discharge. He is not experiencing any symptoms today. We will discharge patient on lisinopril 10 mg daily for hypertension, and atorvastatin 10 mg daily due to elevated LDL = 165. Patient's ASCVD risk score = 5.1%. Plans to follow up with primary care physician. I do recommend that patient be evaluated with outpatient sleep study. Patient notes persistent fatigue, low energy, daytime sleepiness, snoring, elevated blood pressure, and is overweight. He states that sleeping upright in bed overnight last night, he had better sleep. I did recommend possible interventions prior to sleep study, but I do recommend sleep study to evaluate for sleep apnea and possible use of CPAP. Discharge discussed with: patient, family - Time Spent with Patient Total time spent providing and/or coordinating discharge services: Time spent: Less than 30 minutes, D/C greater than 8 hours after Admission - Discharge Medications Prescriptions: New Atorvastatin [Lipitor] 10 mg PO HS 30 Days #30 tablet Lisinopril [Zestril] 10 mg PO DAILY 30 Days #30 tablet Continued Saw [place] 80 mg PO DAILY Garlic 1 mg PO DAILY Aspirin [Lo-Dose Aspirin EC] 81 mg PO DAILY Testosterone Cypionate [Depo-Testosterone] 50 mg IM Q10D Multivitamin [One Daily] 1 each PO DAILY Home Medications: Aspirin [Lo-Dose Aspirin EC] 81 mg PO DAILY 02/08/19 [History] Garlic 1 mg PO DAILY 02/08/19 [History] Multivitamin [One Daily] 1 each PO DAILY 02/08/19 [History] Saw [place] 80 mg PO DAILY 02/08/19 [History] Testosterone Cypionate [Depo-Testosterone] 50 mg IM Q10D 02/08/19 [History] Atorvastatin [Lipitor] 10 mg PO HS 30 Days #30 tablet 02/09/19 [Rx] Lisinopril [Zestril] 10 mg PO DAILY 30 Days #30 tablet 02/09/19 [Rx] Allergies/Adverse Reactions: Allergy/AdvReac Type Severity Reaction Status Date / Time hydrocodone [From Vicodin] AdvReac Nausea Verified 02/11/17 16:02 morphine AdvReac n&v Verified 02/11/17 16:02 Date of admission: 02/08/19 14:28 Primary care physician: PCP NONE Discharging clinician: Romelia Romero Anticipated date of discharge: 02/09/19 - Constitutional Vitals: Temp Pulse Resp BP Pulse Ox 97.8 F 73 16 126/89 96 02/09/19 06:57 02/09/19 06:57 02/09/19 06:57 02/09/19 06:57 02/09/19 06:57 General appearance: Present: cooperative, A&O X 3, pleasant, no acute distress, obese, answers questions appropriately Exam: Pleasant 48-year-old male resting comfortably at bedside. Accompanied by his . - Head Head exam: Present: atraumatic, normal inspection, normocephalic - Eye Eye exam: Present: EOMI, PERRL - ENT ENT exam: Present: mucous membranes moist, normal oropharynx - Neck Neck exam general surgery: Present: full ROM, supple - Respiratory Respiratory exam: Present: CTAB. Absent: respiratory distress, rhonchi, stridor, wheezes - Cardiovascular Cardiovascular exam: Present: RRR, +S1, +S2 - GI/Abdominal GI/Abdominal exam: Present: normal bowel sounds, soft, no peritoneal signs - Extremities Exam Extremities exam: Present: full ROM, normal capillary refill, normal inspection, warm, radial pulses palpable and symmetrical - Neurological Exam Neurological exam: Present: alert, oriented X3, no focal deficits - Psychiatric Psychiatric exam: Present: normal affect, normal mood - Skin Skin exam: Present: warm. Absent: rash - Patient Status Disposition: Home, Self-Care Condition: Good Functional capacity at discharge: independent ambulation Overall status at discharge: patient is back to baseline - Discharge Instructions Instructions: Lisinopril (By mouth), Atorvastatin (By mouth), Chest Pain (DC), DASH Eating Plan (DC) Follow Up With: [facility] [Outside] Romelia Romero [Resident] - 02/22/19 3:00 pm (Please schedule follow up with me within the next 2-4 weeks. ) Forms: ED Satisfaction Letter - Diet and Activity Activity: resume usual activities as tolerated Diet: low fat, low cholesterol, low salt diet <James Chaidez - Last Filed: 02/09/19 14:20> Orders not resulted at time of discharge: Pending orders 02/08/19 19:52 NM franc perf SPECT multi [NM] Routine Date of Encounter: 02/09/19 Hospital course: Mr. Gates is a 48 year old male - Time Spent with Patient Total time spent providing and/or coordinating discharge services: Date of admission: 02/08/19 14:28 Primary care physician: PCP NONE - Constitutional Vitals: Temp Pulse Resp BP Pulse Ox 97.8 F 73 16 126/89 96 02/09/19 06:57 02/09/19 06:57 02/09/19 06:57 02/09/19 06:57 02/09/19 06:57 - Attending Attestation I examined this patient and my medical decision-making was reviewed with the Resident Physician. I agree with the documented findings, disposition and treatment plan as described except to the extent set forth below. Patient seen and examined at bedside. Patient is chest pain-free at this time. He has no complaints. Heart is regular rate and rhythm, no murmurs, rubs, gallops Assessment and plan: Chest pain: Resolved at this time. Patient underwent stress test that was negative for any perfusion defect. We will start a statin given his elevated lipids. Hypertension: Restart lisinopril daily. Recommend close outpatient follow-up. Patient will be discharged home in stable condition.
== END 2019-02-09 12:15 | disposition home or self-care (01) ==
LOC: 3BNU 09:29 → EMEROOARM 09:29 → SUATTDRO 14:28 → 3BNU 14:58
PROVIDERS: ADMIT Internal Medicine; ATTEND Internal Medicine

== ENCOUNTER 2020-11-03 19:23 | Observation (INO) ==
[2020-11-03] MEDS ORDERED: Morphine Sulfate 2 MG/ML SYRINGE IVP ONE (19:56)
[2020-11-03] MEDS ORDERED: Aspirin 81 MG TAB.CHEW PO ONE (19:56)
[2020-11-03] MEDS ORDERED: 0.9 % Sodium Chloride 500 ML IVC ONE (19:56)
[2020-11-03 20:30] LABS: Basophils # 0.1 K/mcL (0.0-0.2); Basophils % 0.6 %; Eosinophils # 0.1 K/mcL (0.0-0.6); Eosinophils % 1.2 %; Hematocrit 43.2 % (37.5-50.1); Hemoglobin 14.6 g/dL (12.9-16.9); Immature Granulocytes % 0.5 % (0-4); Lymphocytes # 1.6 K/mcL (0.6-4.6); Lymphocytes % 16.9 %; Mean Corpuscular HGB Conc 33.8 g/dL (31.6-35.5); Mean Corpuscular Hemoglobin 29.3 pg (28.0-33.3); Mean Corpuscular Volume 86.7 fL (83.0-100.0); Mean Platelet Volume 11.3 fL (9.4-12.4); Monocytes # 0.6 K/mcL (0.0-1.3); Monocytes % 6.3 %; Neutrophils # 7.2 K/mcL (1.6-8.9); Platelet Count 231 K/mcL (140-400); Red Blood Count 4.98 M/mcL (4.19-5.50); Red Cell Distribution Width 13.2 % (11.5-14.5); Segmented Neutrophils % 74.5 %; White Blood Count 9.6 K/mcL (4.3-11.1)
[2020-11-03] MEDS: Nitroglycerin 0.4 MG TAB.SUBL SL PRN (20:37)
[2020-11-03 20:38] LABS: INR 1.1; Prothrombin Time 13.1 Seconds (9.4-12.1)
[2020-11-03 20:40] LABS: Activated Partial Thrombo Time 29.9 Seconds (26.0-36.0)
[2020-11-03 20:52] LABS: BUN/Creatinine Ratio 12 (6-26); Blood Urea Nitrogen 12 mg/dL (6-20); Calcium 9.4 mg/dL (8.6-10.3); Carbon Dioxide 24 mEq/L (23-29); Chloride 105 mEq/L (98-107); Glucose 97 mg/dL (70-105); Osmolality,Calculated 288 (280-300); Potassium 3.4 mEq/L (3.5-5.1); Sodium 139 mEq/L (136-145); eGFR For African Americans > 60 (> 60); eGFR For Non-African Americans > 60 (> 60)
[2020-11-03 20:53] LABS: Troponin I < 0.03 ng/mL (< 0.04)
[2020-11-03] MEDS ORDERED: Ketorolac 15 MG/ML VIAL IVP ONE (22:17)
[2020-11-04] MEDS ORDERED: Melatonin 3 MG TABLET PO PRN (00:15)
[2020-11-04] MEDS ORDERED: Naloxone 0.4 MG/ML INJ IVP PRN (00:15)
[2020-11-04] MEDS ORDERED: Ondansetron 4 MG/2 ML VIAL IVP PRN (00:15)
[2020-11-04] MEDS ORDERED: Acetaminophen 325 MG TABLET PO PRN (00:15)
[2020-11-04 01:39] LABS: Basophils % 0.4 %; Eosinophils # 0.2 K/mcL (0.0-0.6); Eosinophils % 1.9 %; Hematocrit 40.9 % (37.5-50.1); Hemoglobin 13.5 g/dL (12.9-16.9); Immature Granulocytes % 0.4 % (0-4); Lymphocytes # 1.7 K/mcL (0.6-4.6); Mean Corpuscular Hemoglobin 29.5 pg (28.0-33.3); Mean Corpuscular Volume 89.3 fL (83.0-100.0); Mean Platelet Volume 11.2 fL (9.4-12.4); Monocytes # 0.6 K/mcL (0.0-1.3); Monocytes % 7.5 %; Neutrophils # 5.9 K/mcL (1.6-8.9); Platelet Count 204 K/mcL (140-400); Red Blood Count 4.58 M/mcL (4.19-5.50); Red Cell Distribution Width 13.2 % (11.5-14.5); Segmented Neutrophils % 69.8 %; White Blood Count 8.4 K/mcL (4.3-11.1)
[2020-11-04 01:57] LABS: Alanine Aminotransferase 25 Units/L (7-52); Albumin/Globulin Ratio 1.8 (1.1-2.2); Alkaline Phosphatase 47 Units/L (34-104); Aspartate Amino Transferase 20 Units/L (13-39); BUN/Creatinine Ratio 14 (6-26); Bilirubin,Total 0.7 mg/dL (0.3-1.0); Blood Urea Nitrogen 13 mg/dL (6-20); Calcium 8.7 mg/dL (8.6-10.3); Carbon Dioxide 25 mEq/L (23-29); Chloride 107 mEq/L (98-107); Globulin 2.2 g/dL (2.4-3.5); Glucose 99 mg/dL (70-105); Magnesium 1.9 mg/dL (1.6-2.6); Osmolality,Calculated 290 (280-300); Phosphorous 3.5 mg/dL (2.7-4.5); Potassium 3.5 mEq/L (3.5-5.1); Sodium 140 mEq/L (136-145); Total Protein 6.2 g/dL (6.4-8.9); Troponin I < 0.03 ng/mL (< 0.04); eGFR For African Americans > 60 (> 60); eGFR For Non-African Americans > 60 (> 60)
[2020-11-04] MEDS ORDERED: *HR* Heparin 5,000 UNIT/ML VIAL SQ SCH (06:00)
[2020-11-04] MEDS ORDERED: Aspirin Enteric Coated 81 MG Tablet PO SCH (09:00)
[2020-11-04] MEDS ORDERED: Perflutren Lipid Microsphere 1.3 ML in 0.9 % Sodium Chloride 8.7 ML IVP PRN (10:10)
[2020-11-04] MEDS ORDERED: ISOVUE-370 200 ML INFUS..BTL ONE (11:05)
[2020-11-04] MEDS ORDERED: *HR* Heparin 10,000 UNIT/10 ML VIAL ONE (11:05)
[2020-11-04] MEDS ORDERED: Heparin 1,000 UNITS/500 mL 500 ML ONE (11:05)
[2020-11-04] MEDS ORDERED: Nitroglycerin 1,000 MCG/5 ML VIAL IV ONE (11:05)
[2020-11-04] MEDS ORDERED: 0.9 % Sodium Chloride 2,000 ML ONE (11:05)
[2020-11-04] MEDS: Nitroglycerin 0.4 MG TAB.SUBL SL PRN (11:36)
[2020-11-04] MEDS ORDERED: *HR* Midazolam HCl 2 MG/2 ML VIAL ONE ×2 (11:57→12:42)
[2020-11-04] MEDS ORDERED: *HR* FentaNYL (PF) 100 MCG/2 ML VIAL ONE (11:57)
[2020-11-04] MEDS ORDERED: Isosorbide MONOnitrate (24 HR) 30 MG TAB.ER.24H PO SCH (14:00)
[2020-11-04 15:22] VITALS: BP 134/89
[2020-11-04] MEDS ORDERED: Ketorolac 15 MG/ML VIAL IVP STA (15:55)
[2020-11-05] MEDS ORDERED: NON-FORMULARY MEDICATION 1 EACH EACH (Atorvastatin Calcium [Lipitor] 20 MG Tablet) PO SCH (09:00)
[2020-11-05] MEDS ORDERED: Cholecalciferol (D-3) 1,000 UNIT (25MCG) TABLET PO SCH (09:00)
[2020-11-05] MEDS ORDERED: Loratadine 10 MG TABLET PO SCH (09:00)
== END 2020-11-04 16:30 | disposition home or self-care (01) ==
LOC: 2ANU 19:23 → EMEROOARM 19:23 → 2ANU 23:51
PROVIDERS: ADMIT Internal Medicine; ATTEND Internal Medicine